=== PATIENT | female | born 1965 | race Caucasian/White ===

== ENCOUNTER 2023-05-17 14:53 | Day surgery (SDC) | payer BC ==
[2023-05-17 09:21] LABS: BASOPHILS # (AUTO) 0.05 K/uL (0.00-0.20); BASOPHILS % (AUTO) 1.3 % (0.0-5.0); EOSINOPHILS # (AUTO) 0.12 K/uL (0.00-0.70); EOSINOPHILS % (AUTO) 3.1 % (0.0-8.0); HEMATOCRIT 39.9 % (36-48); IMMATURE GRANULOCYTE ABSOLUTE 0.01 K/uL (0-1); LYMPHOCYTES % (AUTO) 25.7 % (21.0-51.0); MEAN CORPUSCULAR HEMOGLOBIN 29.7 pg (27.0-33.0); MEAN CORPUSCULAR HGB CONC 32.8 g/dL (32.0-36.0); MEAN CORPUSCULAR VOLUME 90.5 fL (79-99); MONOCYTES # (AUTO) 0.3 K/uL (0.1-1.0); MONOCYTES % (AUTO) 8.4 % (3.0-13.0); NEUTROPHILS # (AUTO) 2.3 K/uL (1.8-7.7); NEUTROPHILS % (AUTO) 61.2 % (40.0-77.0); PLATELET COUNT (AUTO) 165 K/uL (130-400); RED BLOOD CELL COUNT(AUTO) 4.41 MIL/uL (4.00-5.50); RED CELL DISTRIBUTION WIDTH 15.3 % (11.0-15.5); WHITE BLOOD COUNT (AUTO) 3.8 K/uL (4.8-10.8)
[2023-05-17 09:32] LABS: INR <= 0.93 (0.85-1.15); PROTHROMBIN TIME 10.8 SEC (9.6-11.6)
[2023-05-17 09:34] LABS: PARTIAL THROMBOPLASTIN TIME 28.2 SEC (26.3-35.5)
[2023-05-17 13:15] VITALS: BP 110/59; PULSE 56; RESP 14
[2023-05-17 13:30] VITALS: BP 115/61; PULSE 57; RESP 15
[2023-05-17 13:45] VITALS: BP 119/63; PULSE 56; RESP 15
[2023-05-17 14:00] VITALS: BP 118/63; PULSE 57; RESP 15
[2023-05-17 14:15] VITALS: BP 114/57; PULSE 60; RESP 15
[2023-05-17 14:30] VITALS: BP 116/62; PULSE 60; RESP 16
[~2023-05-17 14:53] MED LIST: AEC81 PO; DULO30CA2 PO; FAMO20TA8 PO; FENTANYL CITRATE PF 50 MCG/1 ML 2ML VIAL ONE; GABA300C PO; HYDR25TA PO; MELO-106 PO; METO25TA6 PO; MIDAZOLAM HCL 1 MG/ML 2ML VIAL ONE
== END 2023-05-17 14:54 | disposition home or self-care (01) ==
LOC: DAH 14:53 → RAH 14:53
PROVIDERS: ATTEND Internal Medicine Hematology & Oncology
DX: R91.1 Solitary pulmonary nodule (principal); J98.4 Other disorders of lung; G90.09 Other idiopathic peripheral autonomic neuropathy; D64.9 Anemia, unspecified; D72.829 Elevated white blood cell count, unspecified; E87.1 Hypo-osmolality and hyponatremia; E87.6 Hypokalemia; J98.11 Atelectasis; E66.9 Obesity, unspecified; E78.5 Hyperlipidemia, unspecified; G47.30 Sleep apnea, unspecified; G43.009 Migraine without aura, not intractable, without status migrainosus; M19.90 Unspecified osteoarthritis, unspecified site; F32.89 Other specified depressive episodes; R35.1 Nocturia; J90 Pleural effusion, not elsewhere classified; R53.83 Other fatigue; M62.81 Muscle weakness (generalized); G47.9 Sleep disorder, unspecified; K13.70 Unspecified lesions of oral mucosa; R68.2 Dry mouth, unspecified; R07.89 Other chest pain; R00.2 Palpitations; R60.9 Edema, unspecified; R06.02 Shortness of breath; R11.0 Nausea; R19.7 Diarrhea, unspecified; R35.0 Frequency of micturition; M54.50 Low back pain, unspecified; M25.50 Pain in unspecified joint; R50.9 Fever, unspecified; M85.80 Other specified disorders of bone density and structure, unspecified site; Z79.899 Other long term (current) drug therapy; Z79.01 Long term (current) use of anticoagulants; Z86.73 Personal history of transient ischemic attack (TIA), and cerebral infarction without residual deficits; Z90.710 Acquired absence of both cervix and uterus; Z98.890 Other specified postprocedural states; Z98.51 Tubal ligation status; Z79.82 Long term (current) use of aspirin; Z82.49 Family history of ischemic heart disease and other diseases of the circulatory system; Z80.3 Family history of malignant neoplasm of breast; Z80.52 Family history of malignant neoplasm of bladder; Z82.3 Family history of stroke
CPT/HCPCS: 32408; 85025; 85610; 85730; 36415; 88305; J3010; J2250; A4215; A4222; A4221; A4663; A4216; A4606; A4223 ×3; 32405; 77012; 99151; 99153